=== PATIENT | female | born 1985 | race Two or more races ===

== ENCOUNTER 2021-09-11 11:21 | Emergency (ER) | payer OTHER ==
[~2021-09-11] VITALS: Ht 170.2 cm; Wt 55.3 kg
== END 2021-09-11 14:48 | disposition home or self-care (01) ==
LOC: ER 11:21
DX: U07.1 COVID-19 (principal); J02.9 Acute pharyngitis, unspecified

== ENCOUNTER 2022-03-11 05:28 | Inpatient (IN) | payer OTHER ==
[~2022-03-11] VITALS: Ht 170.2 cm; Wt 1.8 kg
[2022-03-11] MEDS ORDERED: OBSTETRX ONE 38-1-22 PO (06:54)
[2022-03-11] MEDS ORDERED: ECOTRIN81 MG PO (06:54)
== END 2022-03-15 12:42 | disposition home or self-care (01) | DRG 807 ==
LOC: LDR 05:28 → OB/GYN 03-12 15:48
PROVIDERS: ADMIT Specialist; ATTEND Specialist
PROC: 4A1HXCZ Monitoring of Products of Conception, Cardiac Rate, External Approach (ICD-10-PCS; 2022-03-11)
PROC: 3E033VJ Introduction of Other Hormone into Peripheral Vein, Percutaneous Approach (ICD-10-PCS; 2022-03-12)
PROC: 3E0P7VZ Introduction of Hormone into Female Reproductive, Via Natural or Artificial Opening (ICD-10-PCS; 2022-03-12)
PROC: 10E0XZZ Delivery of Products of Conception, External Approach (ICD-10-PCS; principal; 2022-03-12 14:30)
DX: O61.0 Failed medical induction of labor (principal); Z37.0 Single live birth; O36.5930 Maternal care for other known or suspected poor fetal growth, third trimester, not applicable or unspecified; Z3A.37 37 weeks gestation of pregnancy; Z20.822 Contact with and (suspected) exposure to COVID-19